=== PATIENT | female | born 1950 | race Caucasian/White ===

== ENCOUNTER 2017-03-28 17:25 | Inpatient (IN) | payer MEDICAID ==
[~2017-03-28] VITALS: Ht 149.9 cm; Wt 80.9 kg
[2017-03-28 18:52] LABS: PLATELET COUNT 219 x10^3mcL (130-400); RED CELL DISTRIBUTION WIDTH 13.6 % (11.5-14.5)
[2017-03-28 18:54] LABS: BASOPHIL % 0 % (0-2)
[2017-03-28 19:09] LABS: microscopic required? YES; urine erythrocyte 2+ (NEGATIVE)
[2017-03-28 19:14] LABS: CALCIUM 8.6 mg/dL (8.5-10.1); CARBON DIOXIDE 24.8 mmol/L (21-32); CHLORIDE SERUM 100 mmol/L (98-107); CREATININE SERUM 0.9 mg/dL (0.6-1.0); GFR1 > 60 mL/min; GLUCOSE SERUM 146 mg/dL (74-106); POTASSIUM SERUM 3.6 mmol/L (3.5-5.1); SODIUM SERUM 135 mmol/L (136-145)
[2017-03-28 19:22] LABS: FREE T4 1.48 ng/dL (0.76-1.46); FREE THYROXINE INDEX 3.1 ug/dL (1.4-4.5); T4(THYROXINE) 8.4 ug/dL (4.7-13.3)
[2017-03-28 19:28] LABS: ALKALINE PHOSPHATASE 250 U/L (46-116); ALT/SGPT 28 U/L (14-59); AST/SGOT 35 U/L (15-37); BILIRUBIN TOTAL 0.94 mg/dL (0.20-1.00); TOTAL PROTEIN, SERUM 7.8 g/dL (6.4-8.2)
[2017-03-28 19:35] LABS: ALBUMIN 2.9 g/dL (3.4-5.0)
[2017-03-28 19:48] LABS: ERYTHROCYTE SED RATE 94 mm/hr (0-30)
[2017-03-28 20:05] LABS: C REACTIVE PROTEIN 31.2 mg/dL (<=0.9)
[2017-03-28 20:31] LABS: T3 TOTAL 0.63 ng/mL
[2017-03-28 21:49] LABS: PHOSPHOROUS 1.6 mg/dL (2.5-4.9)
[2017-03-28 21:50] LABS: CHOLESTEROL/HDL RATIO 3.6
[2017-03-28 22:27] VITALS: BP 136/57
[2017-03-28 22:46] LABS: CK-MB 1.2 ng/mL (0-3.6)
[2017-03-28 22:50] VITALS: BP 136/57
[2017-03-29 06:27] LABS: PLATELET COUNT 192 x10^3mcL (130-400); RED CELL DISTRIBUTION WIDTH 13.5 % (11.5-14.5)
[2017-03-29 06:38] LABS: BASOPHIL % 0 % (0-2)
[2017-03-29 06:53] VITALS: BP 158/54
[2017-03-29 07:56] LABS: CALCIUM 8.4 mg/dL (8.5-10.1); CARBON DIOXIDE 25.9 mmol/L (21-32); CHLORIDE SERUM 105 mmol/L (98-107); CREATININE SERUM 0.8 mg/dL (0.6-1.0); GFR1 > 60 mL/min; GLUCOSE SERUM 148 mg/dL (74-106); MAGNESIUM 2.2 mg/dL (1.8-2.4); PHOSPHOROUS 2.3 mg/dL (2.5-4.9); POTASSIUM SERUM 3.3 mmol/L (3.5-5.1); SODIUM SERUM 139 mmol/L (136-145)
[2017-03-29 10:00] VITALS: BP 103/53
[2017-03-29 14:17] VITALS: BP 115/55
[2017-03-29 17:16] VITALS: BP 104/44
[2017-03-29 21:02] VITALS: BP 107/59
[2017-03-30 05:42] VITALS: BP 124/57
[2017-03-30 06:48] LABS: PLATELET COUNT 199 x10^3mcL (130-400); RED CELL DISTRIBUTION WIDTH 13.5 % (11.5-14.5)
[2017-03-30 06:54] LABS: CALCIUM 8.4 mg/dL (8.5-10.1); CARBON DIOXIDE 24.6 mmol/L (21-32); CHLORIDE SERUM 106 mmol/L (98-107); CREATININE SERUM 0.8 mg/dL (0.6-1.0); GFR1 > 60 mL/min; GLUCOSE SERUM 122 mg/dL (74-106); PHOSPHOROUS 2.7 mg/dL (2.5-4.9); POTASSIUM SERUM 3.9 mmol/L (3.5-5.1); SODIUM SERUM 139 mmol/L (136-145)
[2017-03-30 10:11] VITALS: BP 111/49
[2017-03-30 10:27] LABS: BAND NEUTROPHIL 14 % (0-10); BASOPHIL 0 % (0-2); MONOCYTE 6 % (0-7); SEGMENTED NEUTROPHILS 75 % (37-75)
[2017-03-30 14:11] VITALS: BP 102/44
[2017-03-30 17:48] VITALS: BP 127/57
[2017-03-30 18:14] VITALS: BP 120/54
[2017-03-30 21:25] VITALS: BP 111/56
[2017-03-31 05:57] VITALS: BP 110/43
[2017-03-31 06:58] LABS: BASOPHIL % 0.1 % (0-2); PLATELET COUNT 233 x10^3mcL (130-400); RED CELL DISTRIBUTION WIDTH 14.4 % (11.5-14.5)
[2017-03-31 07:06] LABS: CALCIUM 8.8 mg/dL (8.5-10.1); CARBON DIOXIDE 25.5 mmol/L (21-32); CHLORIDE SERUM 106 mmol/L (98-107); CREATININE SERUM 0.8 mg/dL (0.6-1.0); GFR1 > 60 mL/min; GLUCOSE SERUM 232 mg/dL (74-106); MAGNESIUM 2.2 mg/dL (1.8-2.4); PHOSPHOROUS 2.3 mg/dL (2.5-4.9); POTASSIUM SERUM 3.8 mmol/L (3.5-5.1); SODIUM SERUM 139 mmol/L (136-145)
[2017-03-31 10:12] VITALS: BP 120/56
[2017-03-31 14:36] VITALS: BP 114/78
[2017-03-31 18:21] VITALS: BP 127/62
[2017-03-31 20:55] VITALS: BP 129/59
[2017-04-01 05:35] VITALS: BP 146/70
[2017-04-01 07:52] LABS: PLATELET COUNT 264 x10^3mcL (130-400); RED CELL DISTRIBUTION WIDTH 14.4 % (11.5-14.5)
[2017-04-01 08:02] LABS: CALCIUM 9.1 mg/dL (8.5-10.1); CARBON DIOXIDE 25.3 mmol/L (21-32); CHLORIDE SERUM 109 mmol/L (98-107); CREATININE SERUM 0.7 mg/dL (0.6-1.0); GFR1 > 60 mL/min; GLUCOSE SERUM 192 mg/dL (74-106); MAGNESIUM 2.2 mg/dL (1.8-2.4); PHOSPHOROUS 3.3 mg/dL (2.5-4.9); POTASSIUM SERUM 4.1 mmol/L (3.5-5.1); SODIUM SERUM 143 mmol/L (136-145)
[2017-04-01 08:05] LABS: BASOPHIL % 0 % (0-2)
[2017-04-01 09:50] VITALS: BP 133/57
[2017-04-01 10:32] VITALS: BP 146/70
[2017-04-01] MEDS ORDERED: LEVAQUIN750 MG PO (10:41)
[2017-04-01] MEDS ORDERED: LAC PO (10:42)
[2017-04-01] MEDS ORDERED: CLINDAMYCIN HC300 MG PO (10:45)
[2017-04-01] MEDS ORDERED: PREDNISONE10 MG PO (10:49)
[2017-04-01] MEDS ORDERED: VENTOLIN H0.09 MG/A1 INH (10:51)
== END 2017-04-01 12:05 | disposition home or self-care (01) | DRG 720 ==
LOC: ED 17:25 → DU 20:30
PROVIDERS: Family Medicine; Specialist; Student in an Organized Health Care Education/Training Program
DX: A41.9 Sepsis, unspecified organism (principal); N17.0 Acute kidney failure with tubular necrosis; J96.01 Acute respiratory failure with hypoxia; J69.0 Pneumonitis due to inhalation of food and vomit; E44.0 Moderate protein-calorie malnutrition; E83.39 Other disorders of phosphorus metabolism; I08.1 Rheumatic disorders of both mitral and tricuspid valves; I10 Essential (primary) hypertension; R65.20 Severe sepsis without septic shock; M19.90 Unspecified osteoarthritis, unspecified site; R73.03 Prediabetes; E87.1 Hypo-osmolality and hyponatremia; R31.9 Hematuria, unspecified; E66.01 Morbid (severe) obesity due to excess calories; J84.10 Pulmonary fibrosis, unspecified; E87.6 Hypokalemia; E78.5 Hyperlipidemia, unspecified; Z90.49 Acquired absence of other specified parts of digestive tract; Z68.36 Body mass index [BMI] 36.0-36.9, adult
CPT/HCPCS: 36600; 83880; 84439; 87804; 90658; J2543; J2920; J2930; J7030; J7613; J7620; J7633; J7644; Q0092